=== PATIENT | male | born 1935 | race Two or more races ===

== ENCOUNTER 2023-03-12 16:07 | Emergency (ER) | payer OTHER ==
[~2023-03-12] VITALS: Ht 162.6 cm; Wt 63.5 kg
[2023-03-12] MEDS ORDERED: ST. JOSEPH ASPI81 M2 PO (16:12)
[2023-03-12] MEDS ORDERED: SIMVASTATIN40 MG PO (16:13)
[2023-03-12] MEDS ORDERED: LOSARTAN POTASS25 MG PO (16:13)
== END 2023-03-12 17:26 | disposition home or self-care (01) ==
LOC: ER 16:07
DX: M10.9 Gout, unspecified (principal)